=== PATIENT | male | born 1955 | race Caucasian/White ===

== ENCOUNTER 2016-04-13 08:02 | Emergency (ER) | payer BC ==
[2016-04-13 08:20] VITALS: BP 130/76
--- NOTE | 2016-04-13 08:36 | UC ---
Ear Complaint HPI - HPI Summary HPI Summary: right ear pain and funny noises in his right ear for a few weeks, worse the last few days. Hx problems with cerumen impaction. Admits he uses Q tips. - History of Current Complaint Chief Complaint: UCEar Stated Complaint: EAR PAIN Time Seen by Provider: 04/13/16 08:34 Hx Obtained From: Patient Onset/Duration: Gradual Onset Severity Initially: Moderate Severity Currently: Moderate Pain Intensity: 1 Pain Scale Used: 0-10 Numeric Aggravating Factors: Nothing Alleviating Factors: Nothing Associated Signs/Symptoms: Positive: Hearing Loss. Negative: URI Symptoms - Allergies/Home Medications Allergies/Adverse Reactions: Allergies Allergy/AdvReac Type Severity Reaction Status Date / Time No Known Allergies Allergy Verified 04/13/16 08:24 PMH/Surg Hx/FS Hx/Imm Hx Endocrine History Of: Denies: Diabetes, Thyroid Disease Cardiovascular History Of: Reports: Cardiac Disorders - [place], 1988, Hypertension Respiratory History Of: Denies: COPD, Asthma GI/ History Of: Denies: Ulcer - Surgical History Surgical History: None Surgery Procedure, Year, and Place: right knee replacement surgery- 12/30/15 with metal - Family History Known Family History: Positive: Hypertension - Social History Alcohol Use: None Alcohol Amount: 2 -3 times per week, 3-4 12 oz cans of beer Substance Use Type: None Smoking Status (MU): Never Smoked Tobacco - Immunization History Most Recent Influenza Vaccination: no Review of Systems Constitutional: Negative Skin: Negative Eyes: Negative ENT: Ear Ache, Other - "funny noises" in right ear Respiratory: Negative Cardiovascular: Negative Gastrointestinal: Negative Genitourinary: Negative Motor: Negative Neurovascular: Negative Musculoskeletal: Negative Neurological: Negative Psychological: Negative All Other Systems Reviewed And Are Negative: Yes Physical Exam Triage Information Reviewed: Yes Appearance: Well-Appearing, Well-Nourished, Pain Distress Vital Signs: Initial Vital Signs Temp 97.9 F 04/13/16 08:09 Pulse 80 04/13/16 08:09 Resp 18 04/13/16 08:09 BP 130/76 04/13/16 08:09 Vital Signs Reviewed: Yes Eyes: Positive: Conjunctiva Clear ENT: Positive: Pharynx normal, Other: - right ear with cerumen impaction; left ear with some cerumen but TM visible is normal Right TM after irrigation to clear is normal Neck: Positive: Supple Respiratory: Positive: No respiratory distress Cardiovascular: Positive: RRR, Pulses Normal, Brisk Capillary Refill Musculoskeletal: Positive: Strength Intact, ROM Intact Neurological: Positive: Alert, Muscle Tone Normal Psychological Exam: Normal Skin Exam: Normal Ear Complaint Course/Dx - Differential Dx/Diagnosis Differential Diagnosis/HQI/PQRI: Cerumen Impaction, Otitis Externa, Otitis Media Provider Diagnoses: cerumen impaction AD Discharge - Discharge Plan Condition: Stable Disposition: HOME Patient Education Materials: Cerumen Impaction (ED) Referrals: Bijan Harley DO [Primary Care Provider] - Additional Instructions: Dr. Langley recommends that you buy Cerumenex or Debrox and use it daily in your ears, 4 gtts daily, indefinitely. Do not use Q tips. You may want to try using a water pik in your ear on the lowest speed when you feel that the wax has built up. Return to urgent care if any new or worsening symptoms.
== END 2016-04-13 09:47 | disposition home or self-care (01) ==
LOC: UCCORT 08:02
DX: H61.21 Impacted cerumen, right ear (principal); Z96.651 Presence of right artificial knee joint
CPT/HCPCS: 99212; G0463

== ENCOUNTER 2016-07-19 14:50 | Emergency (ER) | payer BC ==
[2016-07-19 15:49] VITALS: BP 138/81
--- NOTE | 2016-07-19 15:55 | RAD ---
INDICATION: Left rib injury. TECHNIQUE: 4 views of the left ribs and dual-energy PA views of the chest were obtained. FINDINGS: No fracture or significant focal osseous abnormality is seen. The heart is within normal limits in size. The lungs are clear. There is no evidence for pneumothorax or pleural effusion. IMPRESSION: NO EVIDENCE FOR FRACTURE.
--- NOTE | 2016-07-19 16:14 | UC ---
Truncal Trauma HPI - HPI Summary HPI Summary: The patient comes in today for: 1. Left trunk trauma: Onset: Yesterday. Palliative/provocative: Pressing on the area or coughing makes it worse. Quality: Ache, but sharp at times. Region: Left lower lateral rib cage area. Severity: 2/10 at rest. But with standing up or coughin/10 Time: Constant. Associated symptoms: Event: While he was dancing, he fell. He did not hit his head. No LOC. He fell on the left side of his body. He had "a little" pain at that time. He had no pain getting up. * - History Of Current Complaint Chief Complaint: UCUpperExtremity Stated Complaint: LFT SIDE RIB AREA PAIN Time Seen by Provider: 07/19/16 16:00 Hx Obtained From: Patient - Allergies/Home Medications Allergies/Adverse Reactions: Allergies Allergy/AdvReac Type Severity Reaction Status Date / Time No Known Allergies Allergy Verified 07/19/16 15:24 PMH/Surg Hx/FS Hx/Imm Hx Previously Healthy: No - TN/CAD, Endocrine History: Dyslipidemia Cardiovascular History: Hypertension Other History Of: Anticoagulant Therapy - Aspirin. Negative For: HIV, Hepatitis B, Hepatitis C - Surgical History Surgical History: None Surgery Procedure, Year, and Place: right knee replacement surgery- 12/30/15 with metal - Family History Known Family History: Positive: Cardiac Disease, Hypertension - Social History Occupation: Employed Full-time Alcohol Use: Occasionally Alcohol Amount: 2 -3 times per week, 3-4 12 oz cans of beer Substance Use Type: None Smoking Status (MU): Never Smoked Tobacco - Immunization History Most Recent Influenza Vaccination: no Review of Systems Constitutional: Negative Skin: Negative Eyes: Negative ENT: Negative Respiratory: Negative Cardiovascular: Negative Gastrointestinal: Negative Genitourinary: Negative All Other Systems Reviewed And Are Negative: Yes Physical Exam Triage Information Reviewed: Yes Appearance: Well-Appearing, No Pain Distress, Well-Nourished Vital Signs: Initial Vital Signs Temp 97.7 F 07/19/16 15:26 Pulse 82 07/19/16 15:26 Resp 20 07/19/16 15:26 BP 138/81 07/19/16 15:26 Pulse Ox 98 07/19/16 15:26 Vital Signs Reviewed: Yes Eyes: Positive: Conjunctiva Clear. Negative: Discharge ENT: Positive: Hearing grossly normal. Negative: Pharyngeal erythema, Nasal congestion, Nasal drainage, TM bulging, TM dull, TM red, Tonsillar swelling, Tonsillar exudate Dental: Negative: Gross Decay/Caries @, Dental Fracture @ Neck: Positive: Supple, Nontender, No Lymphadenopathy. Negative: Nuchal Rigidity Respiratory: Positive: Lungs clear, No respiratory distress, No accessory muscle use. Negative: Rhonchi, Wheezing Cardiovascular: Positive: RRR, No Murmur Abdomen Description: Positive: Nontender, No Organomegaly, Soft. Negative: Distended, Guarding Musculoskeletal: Positive: Strength Intact, ROM Intact, No Edema - Left torso: There is no edema, or erythema or ecchymosis, or subcutaneous emphysema. There was point tenderness at the left side. Neurological: Positive: Alert, Muscle Tone Normal Psychological: Positive: Age Appropriate Behavior, Consolable Skin: Negative: rashes, breakdown Diagnostics - Radiology No standard instances Xray Interpretation: No Acute Changes Radiology Interpretation Completed By: Radiologist Truncal Trauma Course/Dx - Course Course Of Treatment: The patient was told of the x-rays results and we talked about his treatment options (risks and benefits). At this time, he wants to continue with his episodic ibuprofen and start a PPI. - Differential Dx/Diagnosis Provider Diagnoses: left torso contusion Discharge - Discharge Plan Condition: Stable Disposition: HOME Patient Education Materials: Contusion in Adults (ED) Referrals: Bijan Harley DO [Primary Care Provider] - 1 Week (Please see your primary care provider in about one to two weeks to see how well you are doing. If you get worse, please be seen sooner.)
== END 2016-07-19 16:34 | disposition home or self-care (01) ==
LOC: UCCORT 14:50
DX: S20.212A Contusion of left front wall of thorax, initial encounter (principal); W18.30XA Fall on same level, unspecified, initial encounter; Y93.41 Activity, dancing; Y92.9 Unspecified place or not applicable; Y99.9 Unspecified external cause status; I10 Essential (primary) hypertension; E78.5 Hyperlipidemia, unspecified
CPT/HCPCS: 99212; G0463

== ENCOUNTER 2017-02-24 11:26 | Emergency (ER) | payer BC, OTHER ==
[2017-02-24 12:59] VITALS: BP 152/82
--- NOTE | 2017-02-24 12:59 | UC ---
Ear Complaint HPI - HPI Summary HPI Summary: 61 year old male presents with ear fullness. - History of Current Complaint Chief Complaint: UCEar Stated Complaint: LEFT EAR COMPLAINT Time Seen by Provider: 02/24/17 12:59 Hx Obtained From: Patient Onset/Duration: Sudden Onset Severity Initially: Moderate Severity Currently: Moderate Associated Signs/Symptoms: Positive: Foreign Body Sensation - Allergies/Home Medications Allergies/Adverse Reactions: Allergies Allergy/AdvReac Type Severity Reaction Status Date / Time No Known Allergies Allergy Verified 02/24/17 12:55 PMH/Surg Hx/FS Hx/Imm Hx Previously Healthy: Yes Other History Of: Anticoagulant Therapy - Aspirin. Negative For: HIV, Hepatitis B, Hepatitis C - Surgical History Surgical History: Yes Surgery Procedure, Year, and Place: right knee replacement surgery- 12/30/15 with metal - Family History Known Family History: Positive: Cardiac Disease, Hypertension - Social History Alcohol Use: Weekly Alcohol Amount: 2 -3 times per week, 3-4 12 oz cans of beer Substance Use Type: None Smoking Status (MU): Never Smoked Tobacco - Immunization History Most Recent Influenza Vaccination: no Review of Systems Constitutional: Negative Skin: Negative Eyes: Negative ENT: Ear Ache Respiratory: Negative Cardiovascular: Negative Gastrointestinal: Negative Genitourinary: Negative Motor: Negative Neurovascular: Negative Musculoskeletal: Negative Neurological: Negative Psychological: Negative All Other Systems Reviewed And Are Negative: Yes Physical Exam Triage Information Reviewed: Yes Vital Signs: Initial Vital Signs Temp 37.2 C 02/24/17 12:56 Pulse 76 02/24/17 12:56 Resp 20 02/24/17 12:56 BP 152/82 02/24/17 12:56 Pulse Ox 97 02/24/17 12:56 Vital Signs Reviewed: Yes Eye Exam: Normal ENT: Positive: Other - bilateral cerumen impaction Dental Exam: Normal Neck exam: Normal Neck: Positive: 1 Respiratory Exam: Normal Cardiovascular Exam: Normal Abdominal Exam: Normal Musculoskeletal Exam: Normal Neurological Exam: Normal Psychological Exam: Normal Skin Exam: Normal Ear Complaint Course/Dx - Differential Dx/Diagnosis Provider Diagnoses: bilateral cerumen impaction Discharge - Discharge Plan Condition: Stable Disposition: HOME Prescriptions: Neomyc/Polym/HC 1% OTIC SUSP* [Cortisporin Otic Susp 1%*] 4 drop BOTH EARS QID # 1 btl Patient Education Materials: Cerumen Impaction (ED) Referrals: Adeline Cabrera MD [Primary Care Provider] -
== END 2017-02-24 14:22 | disposition home or self-care (01) ==
LOC: UCCORT 11:26
DX: Z72.89 Other problems related to lifestyle (principal); H61.23 Impacted cerumen, bilateral
CPT/HCPCS: 99213; G0463